=== PATIENT | female | born 1955 | race Two or more races ===

== ENCOUNTER 2021-03-14 06:29 | Day surgery (SDC) | payer OTHER | END 2021-03-14 11:15 | disposition home or self-care (01) | LOC: AMB-ENDOS 06:29 | PROVIDERS: ATTEND Surgery | DX: D12.2 Benign neoplasm of ascending colon (principal); Z20.822 Contact with and (suspected) exposure to COVID-19; Z12.11 Encounter for screening for malignant neoplasm of colon ==